=== PATIENT | female | born 1960 | race Caucasian/White ===

== ENCOUNTER 2020-07-08 00:28 | Inpatient (IN) ==
[2020-07-08 01:46] LABS: Basophils % 0.2 % (0.0-0.8); Eosinophils % 0.1 % (0.00-10.9); Hematocrit 42.8 VOL% (35.7-47.0); Hemoglobin 12.2 GM/DL (12.0-16.0); Immature Granulocytes % 0.6 %; Immature Granulocytes Absolute 0.06 #; Lymphocytes # 0.6 10*3/uL (1.4-4.0); Lymphocytes % 6.8 % (21.3-54.2); Mean Corpuscular HGB Conc 28.5 GM/DL (32-36); Mean Corpuscular Volume 74.8 FL (87-102); Monocytes % 7.2 % (1.7-12.7); NRBC # 0.02 10*3/uL; Neutrophils % 85.1 % (38.7-73.9); Platelet Count 154 T/CUMM (130-400); Red Blood Count 5.72 MC/CUMM (3.8-5.5); Red Cell Distribution Width 22.5 % (9.3-17.3); White Blood Count 9.3 T/CUMM (4-12)
[2020-07-08 01:47] LABS: Albumin 3.2 G/DL (3.4-5.0); Bilirubin,Total 2.6 MG/DL (0.2-1.0); Calcium 9.1 MG/DL (8.5-10.1); Osmolality,Calculated 278.8 MOS/KG (273-304); Total Protein 7.6 G/DL (6.4-8.3)
[2020-07-08 02:53] LABS: Bacteria,Urine Occasional /HPF (Few); Bilirubin,Urine Negative (Negative); Blood, Urine Small mg/dL (Negative); Glucose,Urine (UA) Negative (Negative); Hyaline Casts,Urine 21 /LPF (0-3); Ketones,Urine Negative (Negative); Mucus,Urine Occasional /LPF (Occasional); Nitrite,Urine Negative (Negative); Protein,Urine 100 MG/DL; RBC,Urine 4 /HPF (0-4); Squamous Epithelial Cell,Urine Occasional /HPF (0-10); Urine Appearance CLEAR (Clear); Urine Color Amber (Yellow); Urine Specific Gravity 1.013 (1.001-1.035); WBC,Urine <1 /HPF (0-6)
[2020-07-08] MEDS ORDERED: FUROSEMIDE 100 MG/10 ML VIAL IV STA (03:10)
[2020-07-08] MEDS ORDERED: ONDANSETRON 4 MG/2 ML VIAL IV PRN (03:23)
[2020-07-08] MEDS ORDERED: DOCUSATE SODIUM 100 MG CAPSULE PO PRN (03:23)
[2020-07-08] MEDS ORDERED: ACETAMINOPHEN 325 MG TABLET PO PRN (03:23)
[2020-07-08] MEDS ORDERED: MAGNESIUM SULF RIDER 4 GM in PREMIX 1 EACH IV PRN (03:31)
[2020-07-08] MEDS ORDERED: POTASSIUM CHLORIDE 20 MEQ TABLET PO PRN (03:31)
[2020-07-08] MEDS ORDERED: MAGNESIUM SULF RIDER 2 GM in PREMIX 1 EACH IV PRN (03:31)
[2020-07-08 04:14] LABS: Hypochromasia 1+; Platelet Estimate Adequate
[2020-07-08 04:15] LABS: Microcytosis Slight
[2020-07-08 05:14] LABS: Risk Ratio 3.21; Thyroid Stimulating Hormone 3.09 uIU/ml (0.358-3.74); VLDL CHOLESTEROL 18.6 MG/DL
[2020-07-08] MEDS ORDERED: FUROSEMIDE 100 MG/10 ML VIAL IV SCH (08:00)
[2020-07-08] MEDS: atenoloL 25 MG TABLET PO SCH ×2 (08:59→22:02)
[2020-07-08] MEDS: MAGNESIUM GLUCONATE 500 MG TABLET PO SCH (08:59)
[2020-07-08] MEDS ORDERED: PANTOPRAZOLE 40 MG TABLET PO SCH (09:00)
[2020-07-08] MEDS: allopurinoL 100 MG TABLET PO SCH ×2 (09:00→22:03)
[2020-07-08] MEDS: APIXABAN 5 MG TABLET PO SCH ×2 (09:00→09:08)
[2020-07-08] MEDS: ESTROGENS (CONJ) 0.625 MG TABLET PO SCH (09:00)
[2020-07-08] MEDS ORDERED: DOFETILIDE 250 MCG CAPSULE PO SCH (09:00)
[2020-07-08] MEDS: SERTRALINE 100 MG TABLET PO SCH (09:01)
[2020-07-08] MEDS: ASPIRIN EC 81 MG TABLET PO SCH (11:36)
[2020-07-08] MEDS ORDERED: POTASSIUM CHLORIDE RIDER 10 MEQ in PREMIX 1 EACH IV PRN (13:54)
[2020-07-08] MEDS ORDERED: diphenhydrAMINE CAP 50 MG CAPSULE PO SCH (14:00)
[2020-07-08] MEDS: diphenhydrAMINE CAP 25 MG CAPSULE PO SCH ×3 (15:05→22:04)
[2020-07-08] MEDS: methylPREDNISolone SOD SUC 125 MG/2 ML VIAL IV SCH ×3 (15:06→22:07)
[2020-07-08] MEDS: FAMOTIDINE 20 MG/2 ML VIAL IV SCH (15:06)
[2020-07-08] MEDS: FUROSEMIDE 100 MG/10 ML VIAL IV SCH (17:00)
[2020-07-09] MEDS: methylPREDNISolone SOD SUC 125 MG/2 ML VIAL IV SCH ×5 (01:26→21:41)
[2020-07-09] MEDS: FAMOTIDINE 20 MG/2 ML VIAL IV SCH ×2 (01:33→02:25)
[2020-07-09] MEDS: diphenhydrAMINE CAP 25 MG CAPSULE PO SCH ×5 (02:01→21:49)
[2020-07-09 06:20] LABS: Albumin 2.9 G/DL (3.4-5.0); Bilirubin,Total 2.1 MG/DL (0.2-1.0); Calcium 8.6 MG/DL (8.5-10.1); Osmolality,Calculated 271.2 MOS/KG (273-304); Total Protein 7.2 G/DL (6.4-8.3)
[2020-07-09 06:38] LABS: Basophils % 0.1 % (0.0-0.8); Eosinophils % 0.1 % (0.00-10.9); Hematocrit 40.5 VOL% (35.7-47.0); Hemoglobin 11.4 GM/DL (12.0-16.0); Immature Granulocytes % 0.8 %; Immature Granulocytes Absolute 0.07 #; Lymphocytes # 0.6 10*3/uL (1.4-4.0); Lymphocytes % 6.2 % (21.3-54.2); Mean Corpuscular HGB Conc 28.1 GM/DL (32-36); Mean Corpuscular Volume 74.3 FL (87-102); Monocytes % 2.1 % (1.7-12.7); NRBC # 0.03 10*3/uL; Neutrophils % 90.7 % (38.7-73.9); Platelet Count 125 T/CUMM (130-400); Red Blood Count 5.45 MC/CUMM (3.8-5.5); Red Cell Distribution Width 22.1 % (9.3-17.3); White Blood Count 8.9 T/CUMM (4-12)
[2020-07-09 06:41] LABS: Lymphocytes 5 % (20-55); Segmented Neutrophils 90 % (50-85); Total Cells Counted 100
[2020-07-09 06:42] LABS: Hypochromasia 2+; Microcytosis 2+; Polychromasia Slight
[2020-07-09 06:43] LABS: Ovalocytes Few; Platelet Estimate Adequate; Target Cells Slight
[2020-07-09] MEDS: ESTROGENS (CONJ) 0.625 MG TABLET PO SCH (08:49)
[2020-07-09] MEDS: MAGNESIUM GLUCONATE 500 MG TABLET PO SCH (08:49)
[2020-07-09] MEDS: SERTRALINE 100 MG TABLET PO SCH (08:50)
[2020-07-09] MEDS: ASPIRIN EC 81 MG TABLET PO SCH (08:50)
[2020-07-09] MEDS: allopurinoL 100 MG TABLET PO SCH ×2 (08:50→21:50)
[2020-07-09] MEDS: atenoloL 25 MG TABLET PO SCH ×2 (08:50→21:49)
[2020-07-09] MEDS: FUROSEMIDE 100 MG/10 ML VIAL IV SCH ×2 (08:51→16:16)
[2020-07-09] MEDS ORDERED: SODIUM CHLORIDE 0.9% 1,000 ML IV SCH (10:30)
[2020-07-09] MEDS: ALBUTEROL/IPRATROPIUM 3 ML NEB RESP TX SCH ×4 (13:36→23:00)
[2020-07-09] MEDS ORDERED: FAMOTIDINE 20 MG/2 ML VIAL IV ONE (16:30)
[2020-07-09] MEDS: FUROSEMIDE 40 MG/4 ML VIAL IV SCH (16:32)
[2020-07-10] MEDS: IPRATROPIUM 500 MCG/2.5 ML NEB RESP TX SCH ×2 (01:13→08:21)
[2020-07-10 06:41] LABS: Calcium 8.2 MG/DL (8.5-10.1); Osmolality,Calculated 282.5 MOS/KG (273-304)
[2020-07-10 06:43] LABS: % Iron Saturation 4.9 % (18-50)
[2020-07-10 07:29] LABS: Hematocrit 37.8 VOL% (35.7-47.0); Immature Granulocytes % 0.8 %; Immature Granulocytes Absolute 0.07 #; Lymphocytes # 0.5 10*3/uL (1.4-4.0); Lymphocytes % 5.2 % (21.3-54.2); Mean Corpuscular HGB Conc 28.6 GM/DL (32-36); Mean Corpuscular Volume 73.7 FL (87-102); Monocytes % 3.5 % (1.7-12.7); Neutrophils % 90.5 % (38.7-73.9); Platelet Count 126 T/CUMM (130-400); Red Blood Count 5.13 MC/CUMM (3.8-5.5); Red Cell Distribution Width 21.9 % (9.3-17.3); White Blood Count 8.8 T/CUMM (4-12)
[2020-07-10 07:31] LABS: Hemoglobin 10.8 GM/DL (12.0-16.0)
[2020-07-10 07:36] LABS: Hypochromasia 1+
[2020-07-10] MEDS: ESTROGENS (CONJ) 0.625 MG TABLET PO SCH (09:20)
[2020-07-10] MEDS: SERTRALINE 100 MG TABLET PO SCH (09:21)
[2020-07-10] MEDS: allopurinoL 100 MG TABLET PO SCH (09:21)
[2020-07-10] MEDS: MAGNESIUM GLUCONATE 500 MG TABLET PO SCH (09:22)
[2020-07-10] MEDS: ASPIRIN EC 81 MG TABLET PO SCH (09:23)
[2020-07-10] MEDS: atenoloL 25 MG TABLET PO SCH (09:23)
[2020-07-10] MEDS: FUROSEMIDE 40 MG/4 ML VIAL IV SCH (09:29)
[2020-07-10 12:45] VITALS: BP 103/60
== END 2020-07-10 15:10 | disposition home or self-care (01) | DRG 287 ==
LOC: N.ED 00:28 → N.EDINP 00:28 → N.TELEN 05:55
PROVIDERS: ADMIT Internal Medicine; ATTEND Internal Medicine

== ENCOUNTER 2020-07-28 15:03 | Inpatient (IN) ==
[2020-07-28] MEDS ORDERED: FUROSEMIDE 40 MG/4 ML VIAL IV STA (15:31)
[2020-07-28 15:42] LABS: Basophils % 0.4 % (0.0-0.8); Eosinophils % 0.5 % (0.00-10.9); Hematocrit 40.6 VOL% (35.7-47.0); Hemoglobin 11.7 GM/DL (12.0-16.0); Immature Granulocytes % 0.5 %; Immature Granulocytes Absolute 0.04 #; Lymphocytes # 0.8 10*3/uL (1.4-4.0); Lymphocytes % 9.5 % (21.3-54.2); Mean Corpuscular HGB Conc 28.8 GM/DL (32-36); Mean Corpuscular Volume 74.2 FL (87-102); Monocytes % 9.4 % (1.7-12.7); NRBC # 0.03 10*3/uL; Neutrophils % 79.7 % (38.7-73.9); Platelet Count 178 T/CUMM (130-400); Red Blood Count 5.47 MC/CUMM (3.8-5.5); Red Cell Distribution Width 24.7 % (9.3-17.3); White Blood Count 8.3 T/CUMM (4-12)
[2020-07-28 15:49] LABS: INR 1.7; PT Patient Result 17.9 SECS (9.8-11.9); Partial Thromboplastin Time 32.7 SECS (23.9-33.8)
[2020-07-28 16:04] LABS: Anisocytosis 1+; Target Cells Few
[2020-07-28 16:05] LABS: Elliptocytes Few; Hypochromasia 1+; Platelet Estimate Adequate; Polychromasia 1+
[2020-07-28 16:12] LABS: Albumin 3.2 G/DL (3.4-5.0); Bilirubin,Total 2.2 MG/DL (0.2-1.0); Osmolality,Calculated 285.8 MOS/KG (273-304)
[2020-07-28] MEDS ORDERED: DEXTROSE 50% 25 GM/50 ML VIAL IV PRN ×2 (17:02)
[2020-07-28] MEDS ORDERED: GLUCAGON 1 MG VIAL IM PRN ×2 (17:02)
[2020-07-28] MEDS ORDERED: HEPARIN 5,000 UNIT/1 ML VIAL SUBCUT SCH (17:30)
[2020-07-28] MEDS ORDERED: AZITHROMYCIN INJ 500 MG in SODIUM CHLORIDE 0.9% 250 ML IV SCH (18:00)
[2020-07-28] MEDS ORDERED: cefTRIAXone 1,000 MG in SYRINGE 1 EACH IV SCH (18:00)
[2020-07-28 18:43] LABS: Bilirubin,Urine Negative (Negative); Blood, Urine Small mg/dL (Negative); Glucose,Urine (UA) Negative (Negative); Hyaline Casts,Urine 52 /LPF (0-3); Ketones,Urine Negative (Negative); Mucus,Urine Occasional /LPF (Occasional); Nitrite,Urine Negative (Negative); Protein,Urine 100 MG/DL; RBC,Urine 6 /HPF (0-4); Squamous Epithelial Cell,Urine Occasional /HPF (0-10); Urine Appearance Slightly Hazy (Clear); Urine Color Yellow (Yellow); Urine Specific Gravity 1.012 (1.001-1.035); WBC,Urine 3 /HPF (0-6)
[2020-07-28] MEDS ORDERED: ALBUTEROL/IPRATROPIUM 3 ML NEB RESP TX SCH (19:00)
[2020-07-28] MEDS ORDERED: LEVALBUTEROL 1.25 MG/3 ML NEB RESP TX ONE (20:19)
[2020-07-28] MEDS ORDERED: IPRATROPIUM 500 MCG/2.5 ML NEB RESP TX ONE (20:28)
[2020-07-28] MEDS: ACETAMINOPHEN 325 MG TABLET PO SCH (21:23)
[2020-07-28] MEDS: allopurinoL 100 MG TABLET PO SCH (21:24)
[2020-07-28] MEDS: FERROUS SULFATE 325 MG TABLET PO SCH (21:24)
[2020-07-28] MEDS: DOXYCYCLINE HYCLATE INJ 100 MG in SODIUM CHLORIDE 0.9% 100 ML IV SCH (21:24)
[2020-07-28] MEDS: atenoloL 25 MG TABLET PO SCH (21:24)
[2020-07-28] MEDS: APIXABAN 5 MG TABLET PO SCH (21:24)
[2020-07-28] MEDS: SERTRALINE 50 MG TABLET PO SCH (21:24)
[2020-07-28] MEDS: INSULIN LISPRO 100 UNIT/ML SUBCUT SCH (21:30)
[2020-07-28] MEDS: DOFETILIDE 250 MCG CAPSULE PO SCH (23:41)
[2020-07-29] MEDS ORDERED: INFLUENZA VIRUS VACCINE 0.5 ML SYRINGE IM ONE (01:15)
[2020-07-29] MEDS: IPRATROPIUM 500 MCG/2.5 ML NEB RESP TX SCH ×4 (02:43→19:38)
[2020-07-29 06:01] LABS: Calcium 8.9 MG/DL (8.5-10.1); Osmolality,Calculated 283.7 MOS/KG (273-304)
[2020-07-29 07:28] LABS: Basophils % 0.2 % (0.0-0.8); Eosinophils % 0.1 % (0.00-10.9); Hemoglobin 11.3 GM/DL (12.0-16.0); Immature Granulocytes % 0.4 %; Immature Granulocytes Absolute 0.04 #; Lymphocytes % 9.7 % (21.3-54.2); Monocytes % 7.7 % (1.7-12.7); NRBC # 0.03 10*3/uL; Neutrophils % 81.9 % (38.7-73.9); Platelet Count 171 T/CUMM (130-400); Red Blood Count 5.27 MC/CUMM (3.8-5.5); Red Cell Distribution Width 24.4 % (9.3-17.3); White Blood Count 10.2 T/CUMM (4-12)
[2020-07-29 07:53] LABS: Hypochromasia 1+; Platelet Estimate Adequate
[2020-07-29] MEDS ORDERED: FUROSEMIDE 40 MG/4 ML VIAL IV SCH (08:00)
[2020-07-29] MEDS ORDERED: ESTROGENS (CONJ) 0.625 MG TABLET PO SCH (09:00)
[2020-07-29] MEDS: INSULIN LISPRO 100 UNIT/ML SUBCUT SCH ×4 (09:03→20:54)
[2020-07-29] MEDS: APIXABAN 5 MG TABLET PO SCH ×2 (09:04→20:53)
[2020-07-29] MEDS: ASPIRIN EC 81 MG TABLET PO SCH (09:04)
[2020-07-29] MEDS: FERROUS SULFATE 325 MG TABLET PO SCH ×2 (09:04→20:53)
[2020-07-29] MEDS: MAGNESIUM OXIDE 400 MG TABLET PO SCH (09:05)
[2020-07-29] MEDS: SERTRALINE 50 MG TABLET PO SCH ×2 (09:05→20:53)
[2020-07-29] MEDS: PANTOPRAZOLE 40 MG TABLET PO SCH (09:05)
[2020-07-29] MEDS: atenoloL 25 MG TABLET PO SCH (09:05)
[2020-07-29] MEDS: allopurinoL 100 MG TABLET PO SCH ×2 (09:06→20:53)
[2020-07-29] MEDS: DOXYCYCLINE HYCLATE INJ 100 MG in SODIUM CHLORIDE 0.9% 100 ML IV SCH (09:13)
[2020-07-29] MEDS: DOFETILIDE 250 MCG CAPSULE PO SCH (13:00)
[2020-07-29] MEDS ORDERED: ALBUTEROL/IPRATROPIUM 3 ML NEB RESP TX SCH (13:00)
[2020-07-29] MEDS: FUROSEMIDE 40 MG/4 ML VIAL IV SCH (16:34)
[2020-07-29] MEDS: ACETAMINOPHEN 325 MG TABLET PO SCH (20:53)
[2020-07-29] MEDS: DOXYCYCLINE HYCLATE 100 MG CAPSULE PO SCH (20:53)
[2020-07-29] MEDS: atenoloL 50 MG TABLET PO SCH (20:53)
[2020-07-30] MEDS: IPRATROPIUM 500 MCG/2.5 ML NEB RESP TX SCH ×4 (00:06→19:29)
[2020-07-30] MEDS: DOFETILIDE 250 MCG CAPSULE PO SCH ×2 (01:12→14:07)
[2020-07-30 07:05] LABS: Osmolality,Calculated 276.1 MOS/KG (273-304)
[2020-07-30 07:07] LABS: Basophils % 0.2 % (0.0-0.8); Eosinophils # 0.1 10*3/uL (0.0-0.87); Eosinophils % 1.2 % (0.00-10.9); Hematocrit 37.8 VOL% (35.7-47.0); Immature Granulocytes % 0.4 %; Immature Granulocytes Absolute 0.04 #; Lymphocytes # 1.1 10*3/uL (1.4-4.0); Lymphocytes % 11.6 % (21.3-54.2); Mean Corpuscular HGB Conc 28.8 GM/DL (32-36); Mean Corpuscular Volume 74.7 FL (87-102); Monocytes % 10.2 % (1.7-12.7); NRBC # 0.04 10*3/uL; Neutrophils % 76.4 % (38.7-73.9); Platelet Count 147 T/CUMM (130-400); Red Blood Count 5.06 MC/CUMM (3.8-5.5); Red Cell Distribution Width 24.4 % (9.3-17.3); White Blood Count 9.4 T/CUMM (4-12)
[2020-07-30 07:10] LABS: Hemoglobin 10.9 GM/DL (12.0-16.0)
[2020-07-30 07:13] LABS: Hypochromasia Slight; Microcytosis 1+; Platelet Estimate Normal
[2020-07-30] MEDS ORDERED: MAGNESIUM SULF RIDER 2 GM in PREMIX 1 EACH IV ONE (07:51)
[2020-07-30] MEDS: INSULIN LISPRO 100 UNIT/ML SUBCUT SCH ×4 (08:21→20:52)
[2020-07-30] MEDS: APIXABAN 5 MG TABLET PO SCH ×2 (08:40→20:52)
[2020-07-30] MEDS: allopurinoL 100 MG TABLET PO SCH ×2 (08:40→20:52)
[2020-07-30] MEDS: SERTRALINE 50 MG TABLET PO SCH ×2 (08:40→20:52)
[2020-07-30] MEDS: MAGNESIUM OXIDE 400 MG TABLET PO SCH (08:40)
[2020-07-30] MEDS: DOXYCYCLINE HYCLATE 100 MG CAPSULE PO SCH ×2 (08:40→20:52)
[2020-07-30] MEDS: ASPIRIN EC 81 MG TABLET PO SCH (08:41)
[2020-07-30] MEDS: atenoloL 50 MG TABLET PO SCH ×2 (08:41→20:52)
[2020-07-30] MEDS: PANTOPRAZOLE 40 MG TABLET PO SCH (08:41)
[2020-07-30] MEDS: FERROUS SULFATE 325 MG TABLET PO SCH ×2 (08:41→20:52)
[2020-07-30] MEDS: FUROSEMIDE 40 MG/4 ML VIAL IV SCH ×2 (08:43→15:23)
[2020-07-30] MEDS: SPIRONOLACTONE 25 MG TABLET PO SCH (11:15)
[2020-07-30] MEDS: ONDANSETRON 4 MG/2 ML VIAL IV PRN (11:23)
[2020-07-30] MEDS: hydrALAZINE 10 MG TABLET PO SCH ×2 (15:22→20:52)
[2020-07-30] MEDS: ACETAMINOPHEN 325 MG TABLET PO SCH (20:52)
[2020-07-31] MEDS: DOFETILIDE 250 MCG CAPSULE PO SCH ×2 (00:24→12:35)
[2020-07-31] MEDS: IPRATROPIUM 500 MCG/2.5 ML NEB RESP TX SCH ×4 (00:43→19:58)
[2020-07-31 05:38] LABS: Calcium 8.6 MG/DL (8.5-10.1); Osmolality,Calculated 283.5 MOS/KG (273-304)
[2020-07-31 06:11] LABS: Basophils % 0.4 % (0.0-0.8); Eosinophils # 0.1 10*3/uL (0.0-0.87); Eosinophils % 0.8 % (0.00-10.9); Immature Granulocytes % 0.6 %; Immature Granulocytes Absolute 0.05 #; Lymphocytes % 12.1 % (21.3-54.2); Mean Corpuscular HGB Conc 28.2 GM/DL (32-36); Mean Corpuscular Volume 75.1 FL (87-102); Monocytes % 8.9 % (1.7-12.7); NRBC # 0.02 10*3/uL; Neutrophils % 77.2 % (38.7-73.9); Platelet Count 177 T/CUMM (130-400); Red Blood Count 5.19 MC/CUMM (3.8-5.5); Red Cell Distribution Width 25.1 % (9.3-17.3); White Blood Count 7.9 T/CUMM (4-12)
[2020-07-31 06:25] LABS: Hypochromasia 1+; Ovalocytes Slight; Platelet Estimate Adequate
[2020-07-31 06:26] LABS: Microcytosis 1+
[2020-07-31] MEDS: INSULIN LISPRO 100 UNIT/ML SUBCUT SCH ×4 (08:31→22:12)
[2020-07-31] MEDS: FUROSEMIDE 40 MG/4 ML VIAL IV SCH ×2 (09:50→17:09)
[2020-07-31] MEDS: hydrALAZINE 10 MG TABLET PO SCH ×3 (09:50→21:05)
[2020-07-31] MEDS: SPIRONOLACTONE 25 MG TABLET PO SCH (09:50)
[2020-07-31] MEDS: allopurinoL 100 MG TABLET PO SCH ×2 (10:04→21:06)
[2020-07-31] MEDS: MAGNESIUM OXIDE 400 MG TABLET PO SCH (10:04)
[2020-07-31] MEDS: APIXABAN 5 MG TABLET PO SCH ×2 (10:04→21:06)
[2020-07-31] MEDS: FERROUS SULFATE 325 MG TABLET PO SCH ×2 (10:04→21:05)
[2020-07-31] MEDS: SERTRALINE 50 MG TABLET PO SCH ×2 (10:05→21:05)
[2020-07-31] MEDS: DOXYCYCLINE HYCLATE 100 MG CAPSULE PO SCH ×2 (10:05→21:05)
[2020-07-31] MEDS: PANTOPRAZOLE 40 MG TABLET PO SCH (10:05)
[2020-07-31] MEDS: ASPIRIN EC 81 MG TABLET PO SCH (10:05)
[2020-07-31] MEDS ORDERED: NICOTINE 14 MG/24 HR PATCH TRANSDERM PRN (10:41)
[2020-07-31] MEDS ORDERED: ONDANSETRON 4 MG TABLET PO PRN (11:09)
[2020-07-31] MEDS: atenoloL 50 MG TABLET PO SCH (11:32)
[2020-07-31] MEDS: ACETAMINOPHEN 325 MG TABLET PO SCH (21:05)
[2020-07-31] MEDS: PROPRANOLOL 10 MG TABLET PO SCH (21:05)
[2020-08-01] MEDS: IPRATROPIUM 500 MCG/2.5 ML NEB RESP TX SCH ×2 (00:20→07:00)
[2020-08-01] MEDS ORDERED: TIKOSYN PO SCH (01:00)
[2020-08-01 06:30] LABS: Calcium 9.1 MG/DL (8.5-10.1); Osmolality,Calculated 277.1 MOS/KG (273-304)
[2020-08-01 06:57] LABS: Basophils # 0.1 10*3/uL (0.0-0.2); Basophils % 0.7 % (0.0-0.8); Eosinophils # 0.1 10*3/uL (0.0-0.87); Eosinophils % 1.4 % (0.00-10.9); Hematocrit 40.1 VOL% (35.7-47.0); Immature Granulocytes % 0.6 %; Immature Granulocytes Absolute 0.04 #; Lymphocytes # 0.9 10*3/uL (1.4-4.0); Lymphocytes % 13.2 % (21.3-54.2); Mean Corpuscular HGB Conc 28.4 GM/DL (32-36); Mean Corpuscular Volume 75.4 FL (87-102); Monocytes % 10.9 % (1.7-12.7); NRBC # 0.03 10*3/uL; Neutrophils % 73.2 % (38.7-73.9); Platelet Count 177 T/CUMM (130-400); Red Blood Count 5.32 MC/CUMM (3.8-5.5); Red Cell Distribution Width 25.1 % (9.3-17.3); White Blood Count 6.9 T/CUMM (4-12)
[2020-08-01 06:58] LABS: Hemoglobin 11.4 GM/DL (12.0-16.0)
[2020-08-01 07:07] LABS: Hypochromasia 1+; Microcytosis 1+; Ovalocytes Slight; Platelet Estimate Adequate
[2020-08-01] MEDS ORDERED: FUROSEMIDE 40 MG TABLET PO SCH (08:00)
[2020-08-01] MEDS: INSULIN LISPRO 100 UNIT/ML SUBCUT SCH ×2 (08:05→12:06)
[2020-08-01] MEDS: FERROUS SULFATE 325 MG TABLET PO SCH ×2 (09:23→09:43)
[2020-08-01] MEDS: MAGNESIUM OXIDE 400 MG TABLET PO SCH (09:23)
[2020-08-01] MEDS: ASPIRIN EC 81 MG TABLET PO SCH (09:23)
[2020-08-01] MEDS: SPIRONOLACTONE 25 MG TABLET PO SCH (09:23)
[2020-08-01] MEDS: hydrALAZINE 10 MG TABLET PO SCH ×2 (09:23→09:39)
[2020-08-01] MEDS: DOXYCYCLINE HYCLATE 100 MG CAPSULE PO SCH (09:24)
[2020-08-01] MEDS: APIXABAN 5 MG TABLET PO SCH (09:24)
[2020-08-01] MEDS: PANTOPRAZOLE 40 MG TABLET PO SCH (09:24)
[2020-08-01] MEDS: SERTRALINE 50 MG TABLET PO SCH (09:24)
[2020-08-01] MEDS: allopurinoL 100 MG TABLET PO SCH (09:24)
[2020-08-01] MEDS: PROPRANOLOL 10 MG TABLET PO SCH (09:25)
[2020-08-01] MEDS: ONDANSETRON 4 MG/2 ML VIAL IV PRN (09:32)
[2020-08-01 12:08] VITALS: BP 116/56
== END 2020-08-01 12:33 | disposition swing bed (61) | DRG 291 ==
LOC: N.EDINP 15:03 → N.ED 15:03 → SUATTDRO 17:02 → N.TELEN 18:22
PROVIDERS: ADMIT Internal Medicine Geriatric Medicine; ATTEND Family Medicine